=== PATIENT | male | born 1925 | race Caucasian/White ===

== ENCOUNTER 2016-10-09 09:39 | Inpatient (IN) | payer MEDICARE, BC ==
[~2016-10-09] VITALS: Ht 167.6 cm; Wt 81.4 kg
[2016-10-09] VITALS (11 sets, daily range): BP systolic 107–139; BP diastolic 53–79
[2016-10-09] MEDS ORDERED: NS IV 500 ML 500 ML IV ONE (09:59)
[2016-10-09] MEDS ORDERED: DILTIAZEM 25 MG/5 ML INJ (CARDIZEM) VIAL IVP ONE (10:00)
[2016-10-09] MEDS ORDERED: ASPIRIN 81 MG CHEW (CHILDREN'S ASA) PO ONE (10:00)
--- NOTE | 2016-10-09 10:07 | ED Cardiac General ---
History of Present Illness General Chief Complaint: Cardiac/General Problems Stated Complaint: IRR HEART RATE ELEV BP SOA Source: patient Exam Limitations: no limitations History of Present Illness Time seen by provider: 09:50 Initial Comments Here with report of irregular heart rate and elevated blood pressure that is associated with shortness of air. States he noted about 1 a.m. that his heart was beating fast. When walking in from the car, he reports that he was very short of breath and this persisted for a while. Noted to be tachycardic. He is traveling between [place] in [place]. He lives in [place]. He had been on a hunting trip. Denies chest pain, nausea, vomiting or weakness. Denies fever or chills. Has chronic runny nose. History of left eye enucleation. Timing/Duration: 12 hours Severity: moderate Location: central Activities at Onset: none Prior CP/Workup: other (history of chronic A. fib.) Modifying Factors: worse with exercise NTG SL ART PREPARATOR: No ASA po ART PREPARATOR: No Associated Systoms: No Chest Pain, No Fever/Chills, No Nausea/Vomiting, Shortness of AirNo Weakness Allergies and Home Medications Allergies Coded Allergies: sulfamethoxazole (Verified Allergy, Unknown, 10/09/16) trimethoprim (Verified Allergy, Unknown, 10/09/16) Review of Systems Constitutional: see HPINo chills, No fever EENTM: No Symptoms Reported Respiratory: See HPI SOA With Exertion SOA at Rest Cardiovascular: See HPI Irregular Heart Rate Palpitations Gastrointestinal: No Symptoms ReportedDenies Nausea, Denies Vomiting Genitourinary: No Symptoms Reported Musculoskeletal: no symptoms reportedNo back pain, No joint pain Skin: no symptoms reported Psychiatric/Neurological: No Symptoms Reported Endocrine: No Symptoms Reported All Other Systems Reviewed Negative Unless Noted: Yes Past Bigtjhd-Rostqh-Aemhqf Hx Patient Social History Alcohol Use: Denies Use Recreational Drug Use: No Smoking Status: Former Smoker Surgeries HX Surgeries: Yes Surgeries: Appendectomy, Eye Surgery Respiratory Hx Respiratory Disorders: No Cardiovascular Hx Cardiac Disorders: Yes Cardiac Disorders: Atrial Fibrillation, Hypertension Neurological Hx Neurological Disorders: No Genitourinary Hx Genitourinary Disorders: No Gastrointestinal Hx Gastrointestinal Disorders: No Musculoskeletal Hx Musculoskeletal Disorders: No Endocrine Hx Endocrine Disorders: No HEENT HX ENT Disorders: Yes Loss of Vision: Left Cancer Hx Cancer: No Reviewed Nursing Assessment Reviewed/Agree w Nursing PMH: Yes Family Medical History Significant Family History: No Pertinent Family Hx Physical Exam Vital Signs Vital Sign - Last 12Hours 10/09/16 10/09/16 09:40 09:45 Temp 99.0 Pulse 119 Resp 21 B/P 173/100 Pulse Ox 94 O2 Delivery Room Air O2 Flow Rate 2 Capillary Refill : General Appearance: No Apparent Distress WD/WN HEENT: Pharynx Normal Other (left eye enucleation. Right pupil reactive.) Neck: Full Range of Motion Non Tender Supple Respiratory: Lungs Clear Normal Breath Sounds Cardiovascular: Systolic Murmur Irregularly Irregular Gastrointestinal: Non Tender Soft Extremity: Normal Inspection Normal Range of Motion Non Tender No Calf Tenderness Neurologic/Psychiatric: Alert Oriented x3 Skin: Normal Color Warm/Dry Progress/Results/Core Measures Results/Orders Lab Results Laboratory Tests Test 10/09/16 09:55 10/09/16 11:54 Range/Units Activated Partial Thromboplast Time 48 H 24-35 SEC Alanine Aminotransferase (ALT/SGPT) 19 0-55 U/L Albumin 4.0 3.2-4.5 G/DL Alkaline Phosphatase 57 40-136 U/L Anion Gap 11 5-14 MMOL/L Aspartate Amino Transf (AST/SGOT) 27 5-34 U/L BUN/Creatinine Ratio 17 Basophils # (Auto) 0.0 0.0-0.1 10^3/uL Basophils (%) (Auto) 0 0-10 % Blood Urea Nitrogen 19 H 7-18 MG/DL Calcium Level 8.9 8.5-10.1 MG/DL Carbon Dioxide Level 18 L 21-32 MMOL/L Chloride Level 108 H 98-107 MMOL/L Creatinine 1.09 0.60-1.30 MG/DL Eosinophils # (Auto) 0.0 0.0-0.3 10^3/uL Eosinophils (%) (Auto) 1 0-10 % Estimat Glomerular Filtration Rate > 60 Glucose Level 195 H 70-105 MG/DL Hematocrit 37 L 40-54 % Hemoglobin 12.7 L 13.3-17.7 G/DL INR Comment 2.1 H 0.8-1.4 Lymphocytes # (Auto) 1.3 1.0-4.0 X 10^3 Lymphocytes (%) (Auto) 22 12-44 % Magnesium Level 1.8 1.8-2.4 MG/DL Mean Corpuscular Hemoglobin 32 25-34 PG Mean Corpuscular Hemoglobin Concent 35 32-36 G/DL Mean Corpuscular Volume 92 80-99 FL Mean Platelet Volume 10.9 H 7.4-10.4 FL Monocytes # (Auto) 0.6 0.0-1.0 X 10^3 Monocytes (%) (Auto) 11 0-12 % Myoglobin 67.1 10.0-92.0 NG/ML Neutrophils # (Auto) 3.7 1.8-7.8 X 10^3 Neutrophils (%) (Auto) 66 42-75 % Platelet Count 110 L 130-400 10^3/uL Potassium Level 3.9 3.6-5.0 MMOL/L Prothrombin Time 23.3 H 12.2-14.7 SEC Red Blood Count 3.94 L 4.35-5.85 10^6/uL Red Cell Distribution Width 14.4 10.0-14.5 % Sodium Level 137 135-145 MMOL/L Total Bilirubin 1.4 H 0.1-1.0 MG/DL Total Protein 6.9 6.4-8.2 G/DL Troponin I < 0.30 <0.30 NG/ML White Blood Count 6.3 4.3-11.0 10^3/uL B-Type Natriuretic Peptide 415.8 H <100.0 PG/ML My Orders Orders-EDILIA HA MD Cbc With Automated Diff (10/09/16 09:59) Magnesium (10/09/16 09:59) Chest 1 View, Ap/Pa Only (10/09/16 09:59) Ekg Tracing (10/09/16 09:59) Cardiac Profile 1 (10/09/16 09:59) Comprehensive Metabolic Panel (10/09/16 09:59) Myoglobin Serum (10/09/16 09:59) Protime With Inr (10/09/16 09:59) Partial Thromboplastin Time (10/09/16 09:59) O2 (10/09/16 09:59) Monitor-Rhythm Ecg Trace Only (10/09/16 09:59) Lipid Panel (10/10/16 06:00) Aspirin Chewable Tablet (Baby Aspirin Ch (10/09/16 10:00) Saline Lock/Iv-Start (10/09/16 09:59) Saline Lock/Iv-Start (10/09/16 09:59) Ns Iv 500 Ml (Sodium Chloride 0.9%) (10/09/16 09:59) Diltiazem Injection (Cardizem Injection) (10/09/16 10:00) Sodium Chloride (Ad... W/Diltiazem Drip (10/09/16 10:00) BNP (10/09/16 11:08) Furosemide Injection (Lasix Injection) (10/09/16 11:13) Medications Given in ED Current Medications Medications Dose Ordered Sig/Josefina Route Start Time Stop Time Status Last Admin Dose Admin Aspirin 324 mg 324 mg ONCE ONCE PO 10/09/16 10:00 10/09/16 10:01 DC 10/09/16 10:15 324 MG Diltiazem HCl 20 mg ONCE ONCE IVP 10/09/16 10:00 10/09/16 10:02 DC 10/09/16 10:14 20 MG Sodium Chloride 500 ml @ 0 mls/hr Q0M ONCE IV 10/09/16 09:59 10/09/16 10:01 DC 10/09/16 10:15 0 MLS/HR Vital Signs/I&O Vital Sign - Last 12Hours 10/09/16 10/09/16 10/09/16 09:40 09:45 10:16 Temp 99.0 Pulse 119 97 Resp 21 26 B/P 173/100 167/89 Pulse Ox 94 95 95 O2 Delivery Room Air Nasal Cannula O2 Flow Rate 2 2.00 Progress Note : Progress Note Seen and evaluated. IV, labs, EKG and chest x-ray ordered. Normal saline 500 mL bolus. Patient is having atrial fibrillation with rapid ventricular rate of 120s to 150s. Cardizem 20 mg IV and 10 mg an hour drip initiated. We will check coags as patient is on Coumadin to ensure that is therapeutic. Monitor patient. Cardizem drip decreased at 5 mg an hour with excellent management of heart rate. Blood pressure 120s over 60s. Chest x-ray shows fairly significant pulmonary congestion consistent with heart failure. This is likely related to uncontrolled heart rate and complicated by aortic stenosis. 1110: I did discuss the case with Dr. CARTER and he accepts patient for admission, inpatient status. Request Lasix 20 mg IV. This was ordered. Requested a cardiology consult and this was done. I did discuss the case with Dr. Medina. He will see the patient in consult. ICU admission. All findings and concerns discussed with patient and family who agree with plan. ECG Initial ECG Impression Date: Oct 09, 2016 Initial ECG Impression Time: 09:45 Initial ECG Rate: 125 Initial ECG Rhythm: A Fib/Flutter Comment Atrial fibrillation with rapid ventricular response. Multifocal PVCs noted. Right axis deviation. No evidence of ST elevation GA. No previous available for comparison. Interpreted by me. Diagnostic Imaging Diagonstic Imaging: Xray Plain Films/CT/US/NM/MRI: chest Comments [facility] [place], [place] NAME: Carlee [facility] REC#: [id number] PT STATUS: REG ER : [id number] PHYSICIAN: EDILIA HA MD ADMIT DATE: 10/09/16/ER Draft Date of Exam:10/09/16 CHEST 1 VIEW, AP/PA ONLY INDICATION: Hypertension, dyspnea, and cardiac dysrhythmia. TECHNIQUE: Portable upright view of the chest is obtained. COMPARISON: There is no previous study for comparison. FINDINGS: There is mild generalized cardiomegaly and pulmonary venous congestion. No pneumothorax identified. There is no significant pleural fluid. Prominence of interstitial markings may reflect mild interstitial edema. IMPRESSION: Cardiomegaly with mild pulmonary venous congestion. Interstitial markings may reflect interstitial edema secondary to congestive heart failure. Dictated on workstation # [id number] Dict: 10/09/16 1051 Trans: 10/09/[address] [place] [address] [id number] Interpreted by: DENEEN TREVINO MD Electronically signed by: Departure Communication Time/Spoke to Admitting Phy: 11:10 Time/Spoke to Consulting Physi: 11:27 Impression Impression: Primary Impression: Atrial fibrillation with rapid ventricular response Additional Impression: Acute heart failure Qualified Code: I50.9 - Heart failure, unspecified Disposition: ADMITTED INPATIENT Condition: Stable Decision to Admit Reason: Admit from ER (General) Decision to Admit/Date: Oct 09, 2016 Time/Decision to Admit Time: 11:10 EDILIA HA MD Oct 09, 2016 10:07
[2016-10-09 10:09] LABS: BASOPHILS % (AUTO) 0 % (0-10); EOSINOPHILS % (AUTO) 1 % (0-10); LYMPHOCYTES # (AUTO) 1.3 X 10^3 (1.0-4.0); LYMPHOCYTES % (AUTO) 22 % (12-44); MEAN CORPUSCULAR HGB CONC 35 G/DL (32-36); MEAN CORPUSCULAR VOLUME 92 FL (80-99); MEAN PLATELET VOLUME 10.9 FL (7.4-10.4); MONOCYTES # (AUTO) 0.6 X 10^3 (0.0-1.0); MONOCYTES % (AUTO) 11 % (0-12); NEUTROPHILS # (AUTO) 3.7 X 10^3 (1.8-7.8); NEUTROPHILS % (AUTO) 66 % (42-75); RED CELL DISTRIBUTION WIDTH 14.4 % (10.0-14.5)
[2016-10-09 10:11] LABS: MEAN CORPUSCULAR HEMOGLOBIN 32 PG (25-34); RED BLOOD COUNT 3.94 10^6/uL (4.35-5.85)
[2016-10-09 10:12] LABS: PLATELET COUNT 110 10^3/uL (130-400)
[2016-10-09 10:13] LABS: WHITE BLOOD COUNT 6.3 10^3/uL (4.3-11.0)
[2016-10-09] MEDS: DILTIAZEM DRIP 100 MG in SODIUM CHLORIDE (ADD-VANTAGE) 100 ML IV SCH ×2 (10:16→20:02)
[2016-10-09 10:25] LABS: INR 2.1 (0.8-1.4); PROTHROMBIN TIME PATIENT 23.3 SEC (12.2-14.7)
[2016-10-09 10:26] LABS: ALANINE AMINOTRANSFERASE 19 U/L (0-55); ANION GAP 11 MMOL/L (5-14); ASPARTATE AMINO TRANSFERASE 27 U/L (5-34); BILIRUBIN,TOTAL 1.4 MG/DL (0.1-1.0); BLOOD UREA NITROGEN 19 MG/DL (7-18); BUN/CREATININE RATIO 17; CALCIUM 8.9 MG/DL (8.5-10.1); CARBON DIOXIDE 18 MMOL/L (21-32); CHLORIDE 108 MMOL/L (98-107); CREATININE SERUM 1.09 MG/DL (0.60-1.30); GFR ESTIMATED > 60; GLUCOSE 195 MG/DL (70-105); MAGNESIUM 1.8 MG/DL (1.8-2.4); POTASSIUM 3.9 MMOL/L (3.6-5.0); SODIUM 137 MMOL/L (135-145); TOTAL PROTEIN 6.9 G/DL (6.4-8.2)
[2016-10-09 10:33] LABS: MYOGLOBIN SERUM 67.1 NG/ML (10.0-92.0)
--- NOTE | 2016-10-09 11:01 | Diagnostic Imaging Report ---
INDICATION: Hypertension, dyspnea, and cardiac dysrhythmia. TECHNIQUE: Portable upright view of the chest is obtained. COMPARISON: There is no previous study for comparison. FINDINGS: There is mild generalized cardiomegaly and pulmonary venous congestion. No pneumothorax identified. There is no significant pleural fluid. Prominence of interstitial markings may reflect mild interstitial edema. IMPRESSION: Cardiomegaly with mild pulmonary venous congestion. Interstitial markings may reflect interstitial edema secondary to congestive heart failure. Dictated by: Dictated on workstation # [id number]
[2016-10-09] MEDS ORDERED: FUROSEMIDE 40 MG/4 ML INJ (LASIX) IV STA (11:13)
--- NOTE | 2016-10-09 13:11 | Consultation-Cardiology ---
HPI-Cardiology Cardiology Consultation: Date of Consultation 10/09/16 Date of Admission Attending Physician Tio Angel MD Admitting Physician Sangeetha,Local Physician Consulting Physician Devin MEDINA MD HPI: Chief Complaint: Palpitations This is a pleasant 89-year-old gentleman who has history of atrial fibrillation , hypertension, hyperlipidemia. He was traveling from [place] to [place] when he experienced significant palpitations and decided to come to the nearest ER. He was found to be in atrial fibrillation with rapid ventricular rate. He was given a bolus of Cardizem which improved his heart rate response. He is also on chronic oral anticoagulation therapy with Coumadin. According to the patient and his INR is always above 2. He denies any chest pain, shortness of breath, syncope or near syncope. Review of Systems-Cardiology Review of Systems Constitutional: No As described under HPI, No no symptoms reported, No chills, No fever, No lightheadedness, No malaise, No tiredness, No weight loss, No weight gain, No other Eyes: No As described under HPI, No no symptoms reported, No blindness, No blurred vision, No contact lenses, No drainage, No decreased acuity, No foreign body sensation, No glasses, No inflammation, No pain, No photophobia, No previous injury, No shadows, No tunnel vision, No other, No vision change Ears/Nose/Throat: No As described under HPI, No no symptoms reported, No chronic hearing loss, No epistaxis, No ear discharge, No ear pain, No loose teeth, No mouth pain, No mouth swelling, No nasal drainage, No nose pain, No recent hearing loss, No throat pain, No throat swelling, No ulcerations, No other Respiratory: No no symptoms reported, No As described under HPI, No cough, No orthopnea, No shortness of breath, No SOB with excertion, No SOB at rest, No stridor, No wheezing, No other Cardiovascular: No no symptoms reported, No As described under HPI, No chest pain, No edema, irregular heart rateNo lightheadedness, palpitationsNo syncope , No other Gastrointestinal: No no symptoms reported, No As described under HPI, No abdomen distended, No abdominal pain, No blood streaked bowels, No constipation , No diarrhea, No difficulty swallowing, No nausea, No poor appetite, No poor fluid intake, No rectal bleeding, No vomiting, No other, No nausea/vomiting/ diarrhea, No stool coloration changes Genitourinary: No no symptoms reported, No As described under HPI, No burning, No dysuria, No discharge, No frequency, No flank pain, No hematuria, No incontinence, No pain, No urgency, No other, No urine frequency changes, No urine coloration changes Musculoskeletal: No no symptoms reported, No As describe under HPI, No back pain, No gout, No joint pain, No joint swelling, No muscle pain, No muscle stiffness, No neck pain, No other Skin: No no symptoms reported, No As described under HPI, No change in color, No change in hair/nails, No dryness, No lesions, No lumps, No rash, No other, No skin related problems, No ulcerations, No rash on exposed areas, No ulcerations on exposed areas Psychiatric/Neurological: No As described under HPI, No anxiety, No depression , No emotional problems, No focal weakness, No headache, No no symptoms reported , No numbness, No other, No pre-existing deficit, No seizure, No syncope, No tingling, No tremors, No weakness All Other Systems Reviewed Negative Unless Noted: Yes AQL-Cmsdsa-Npqxvd Hx Patient Social History Alcohol Use: Denies Use Recreational Drug Use: No Smoking Status: Former Smoker 2nd Hand Smoke Exposure: No Recent Foreign Travel: No Recent Infectious Disease Expo: No Hospitalization with Isolation: Denies Past Medical History PMH As described under Assessment. Allergies and Home Medications Allergies Coded Allergies: sulfamethoxazole (Verified Allergy, Unknown, 10/09/16) trimethoprim (Verified Allergy, Unknown, 10/09/16) Physical Exam-Cardiology Physical Exam Vital Signs/I&O Vital Sign - Last 12Hours 10/09/16 10/09/16 10/09/16 09:40 09:45 10:16 Temp 99.0 Pulse 119 97 Resp 21 26 B/P 173/100 167/89 Pulse Ox 94 95 95 O2 Delivery Room Air Nasal Cannula O2 Flow Rate 2 2.00 Capillary Refill : Less Than 3 Seconds Constitutional: No appears stated age, No AAO x 3, No apparent distress, No PERRL, No well-developed, No well-nourished, No other HEENT: No PERRL, No normal ENT inspection, No TMs normal, No pharynx normal, No scleral icterus (R), No scleral icterus (L), No pale conjunctivae (R), No pale conjunctivae (L), No photophobia, No TM abnormal (R), No TM abnormal (L), No pharyngeal erythema, No tonsillar exudate, No other, No discharge, No EOMI, No hearing is well preserved, No hard of hearing, No oral hygience is good, No ulceration, No xanthelasmas are seen Neck: No non-tender, No full range of motion, No supple, No normal inspection, No carotid bruit, No limited range of motion, No lymphadenopathy (R), No lymphadenopathy (L), No tender lateral, No tender midline, No thyromegaly, No other, No carotid pulses are 2 + bilaterally, No with good upstrokes Respiratory: No accessory muscle use, No respiratory distress, No chest tender , No chest expansion is symmetric, No chest is bilaterally symmetric, No lungs clear to percussion, No lungs clear to auscultation, No crackles, No rhonchi, No rales, No stridor, No wheezing, No pleural rub, No other Cardiovascular: irregularly irregular systolic murmur Gastrointestinal: No tender, No soft, No round, No distended, No pulsatile mass , No organomegaly, No guarding, No rebound, No tenderness, No hernia, No mass, No audible bowel sounds, No abnormal bowel sounds, No abdominal bruits, No spleenomegaly, No other Rectal: deferred Extremities: No normal range of motion, No non-tender, No normal inspection, No pedal edema, No calf tenderness, No normal capillary refill, No pelvis stable , No calf tenderness, No inflammation, No pedal edema, No slow capillary refill , No swelling, No other, No abrasion, No clubbing, No cyanosis, No ecchymosis, No laceration, No no lower extremity edema bilateral, No significant edema, No tenderness, No wound Neurologic/Psychiatric: No driver II-XII nml as tested, No no motor/sensory deficits, No alert, No normal mood/affect, No oriented x 3, No abnormal cerebellar tests, No abnormal driver II-XII, No abnormal gait, No aphasia, No EOM palsy, No facial droop, No motor weakness, No sensory deficit, No depressed affect, No disoriented x 3, No other, No grossly intact, No power is 5/5 both on sides Skin: No normal color, No warm/dry, No cyanosis, No cool, No diaphoresis, No damp, No ecchymosis, No jaundice, No mottled, No pallor, No rash, No tattoos/ piercings, No ulcerations, No rash on exposed areas, No ulcerations on exposed areas, No other Data Review Labs Laboratory Tests 10/09/16 09:55: Activated Partial Thromboplast Time 48H, Alanine Aminotransferase (ALT/SGPT) 19 , Albumin 4.0, Alkaline Phosphatase 57, Anion Gap 11, Aspartate Amino Transf ( AST/SGOT) 27, BUN/Creatinine Ratio 17, Basophils # (Auto) 0.0, Basophils (%) ( Auto) 0, Blood Urea Nitrogen 19H, Calcium Level 8.9, Carbon Dioxide Level 18L, Chloride Level 108H, Creatinine 1.09, Eosinophils # (Auto) 0.0, Eosinophils (%) (Auto) 1, Estimat Glomerular Filtration Rate > 60, Glucose Level 195H, Hematocrit 37L, Hemoglobin 12.7L, INR Comment 2.1H, Lymphocytes # (Auto) 1.3, Lymphocytes (%) (Auto) 22, Magnesium Level 1.8, Mean Corpuscular Hemoglobin 32, Mean Corpuscular Hemoglobin Concent 35, Mean Corpuscular Volume 92, Mean Platelet Volume 10.9H, Monocytes # (Auto) 0.6, Monocytes (%) (Auto) 11, Myoglobin 67.1, Neutrophils # (Auto) 3.7, Neutrophils (%) (Auto) 66, Platelet Count 110L, Potassium Level 3.9, Prothrombin Time 23.3H, Red Blood Count 3.94L, Red Cell Distribution Width 14.4, Sodium Level 137, Total Bilirubin 1.4H, Total Protein 6.9, Troponin I < 0.30, White Blood Count 6.3 10/09/16 11:54: B-Type Natriuretic Peptide 415.8H ECG Impression ECG Initial ECG Impression: Atrial Fibrillation w/RVR A/P-Cardiology Assessment/Admission Diagnosis 1. Atrial fibrillation with rapid ventricular rate, 2. Heart murmur, 3. Hypertension Plan - Much better heart rate response after bolus of Cardizem and Cardizem infusion. Heart rate during my consultation and range from 60-80 BPM. I will find out the dose of outpatient metoprolol; will start him on metoprolol may be at a higher dose and gradually transition him off Cardizem infusion. Continue Coumadin. - Continue his hypertension medications. - Echocardiogram to evaluate for heart murmur. Thank you for your consultation. Please call me if you have any questions. Vanessa Medina MD, FACP, FACC, FSCAI, FHRS, CCDS Interventional Cardiology Cardiac Electrophysiology Vascular Medicine and Endovascular Interventions Clinical Quality Measures AMI/AHF: ASA po Prior to arrival: No DVT/VTE Risk/Contraindication: Other: Adequate oral anticoagulation Devin MEDINA MD Oct 09, 2016 13:11
[2016-10-09] MEDS ORDERED: METO-274 PO (13:25)
[2016-10-09] MEDS ORDERED: MULT-1029 PO (13:47)
[2016-10-09] MEDS ORDERED: AMLO5TAB2 PO (13:57)
[2016-10-09] MEDS ORDERED: LISI-552 PO (13:57)
[2016-10-09] MEDS ORDERED: TRIA1TAB3 PO (13:57)
[2016-10-09] MEDS ORDERED: WARF2.5T82 PO ×2 (13:57)
[2016-10-09] MEDS ORDERED: PRAV40TA2 PO (13:57)
--- NOTE | 2016-10-09 13:57 | History & Physical-Hospitalist ---
HPI History of Present Illness: HPI/Chief Complaint Wake up the patient is a charming and alert 89-year-old white male who presented to the emergency room this morning with complaints of cough and shortness of breath. On evaluation in the emergency room he was found to have atrial fibrillation with a rapid ventricular response in the 130-160 range. In addition he was noted to have the murmur of aortic stenosis. He reports that he has had atrial fibrillation for at least 2 years. He has not previously had palpitations however. 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 He was overnight eating here in [place] on his return trip from [place] where he had been on [place]. The rate was controlled in the emergency room by virtue of IV Cardizem. He had initially been given about 500 mL of IV fluids. When the chest x-ray returned it suggested some pulmonary edema. The patient reports that he has previously had an echocardiogram several years ago. He is not clear as to the ejection fraction or the aortic valve surface area. Source: patient Exam Limitations: no limitations Date Seen 10/09/16 Attending Physician Tio Carter MD PCP No,Local Physician Referring Physician Date of Admission Oct 09, 2016 at 12:19 Home Medications & Allergies Home Medications Reviewed patient Home Medication Reconciliation Form Allergies Coded Allergies: sulfamethoxazole (Verified Allergy, Unknown, 10/09/16) trimethoprim (Verified Allergy, Unknown, 10/09/16) Past Cqqewlo-Apxepy-Vpmxat Hx Patient Social History Alcohol Use: Denies Use Recreational Drug Use: No Smoking Status: Former Smoker 2nd Hand Smoke Exposure: No Recent Foreign Travel: No Contact w/other who traveled: No Recent Hopitalizations: No Recent Infectious Disease Expo: No Seasonal Allergies Seasonal Allergies: No Surgeries HX Surgeries: Yes Surgeries: Appendectomy, Eye Surgery Respiratory Hx Respiratory Disorders: No Cardiovascular Hx Cardiovascular Disorders: Yes Cardiac Disorders: Atrial Fibrillation, Hypertension Neurological Hx Neurological Disorders: No Genitourinary Hx Genitourinary Disorders: No Gastrointestinal Hx Gastrointestinal Disorders: No Musculoskeletal Hx Musculoskeletal Disorders: No Endocrine Hx Endocrine Disorders: No HEENT HX ENT Disorders: Yes Loss of Vision: Left Cancer Hx Cancer: No Psychosocial Hx Psychiatric Problems: No Reviewed Nursing Assessment Reviewed/Agree w Nursing PMH: Yes Family Medical History Significant Family History: No Pertinent Family Hx Review of Systems Constitutional: see HPI EENTM: no symptoms reported Respiratory: cough short of breath Cardiovascular: palpitations Gastrointestinal: no symptoms reported Genitourinary: no symptoms reported Musculoskeletal: no symptoms reported Skin: no symptoms reported Psychiatric/Neurological: No Symptoms Reported Physical Exam Physical Exam Vital Signs Vital Sign - Last 12Hours 10/09/16 10/09/16 09:40 09:45 Temp 99.0 Pulse 119 Resp 21 B/P 173/100 Pulse Ox 94 O2 Delivery Room Air O2 Flow Rate 2 Capillary Refill : Less Than 3 Seconds General Appearance: No Apparent Distress WD/WN Eyes: Bilateral Eye Normal Inspection HEENT: Normal ENT Inspection Neck: Full Range of Motion Normal Inspection Non Tender Supple Carotid Bruit Respiratory: Chest Non Tender Lungs Clear Normal Breath Sounds No Accessory Muscle Use No Respiratory Distress Cardiovascular: Irregularly Irregular Other (grade 2-3 systolic murmur in the area of the aortic valve) Gastrointestinal: Normal Bowel Sounds No Organomegaly No Pulsatile Mass Non Tender Soft Extremity: Normal Capillary Refill Normal Inspection Normal Range of Motion Non Tender No Calf Tenderness No Pedal Edema Neurologic/Psychiatric: Alert Oriented x3 No Motor/Sensory Deficits Normal Mood/Affect Skin: Normal Color Warm/Dry Lymphatic: No Adenopathy Results Results/Procedures Lab Laboratory Tests 10/09/16 09:55 Assessment/Plan Admission Diagnosis 1.atrial fibrillation with rapid ventricular response 2.pulmonary edema secondary to heart rate in excess of predicted maximum heart rate. 3.murmur suggesting aortic stenosis Assessment and Plan Cardiology consult. 2.echocardiogram to evaluate ejection fraction and valve surface area Clinical Quality Measures AMI/AHF: ASA po Prior to arrival: No DVT/VTE Risk/Contraindication: Other: Adequate oral anticoagulation TIO CARTER MD Oct 09, 2016 13:57
[2016-10-10] VITALS (9 sets, daily range): BP systolic 98–131; BP diastolic 43–74
[2016-10-10 04:30] LABS: BASOPHILS % (AUTO) 0 % (0-10); EOSINOPHILS # (AUTO) 0.1 10^3/uL (0.0-0.3); EOSINOPHILS % (AUTO) 2 % (0-10); LYMPHOCYTES # (AUTO) 1.1 X 10^3 (1.0-4.0); LYMPHOCYTES % (AUTO) 21 % (12-44); MEAN CORPUSCULAR HEMOGLOBIN 32 PG (25-34); MEAN CORPUSCULAR HGB CONC 35 G/DL (32-36); MEAN CORPUSCULAR VOLUME 92 FL (80-99); MEAN PLATELET VOLUME 10.5 FL (7.4-10.4); MONOCYTES # (AUTO) 0.8 X 10^3 (0.0-1.0); MONOCYTES % (AUTO) 15 % (0-12); NEUTROPHILS # (AUTO) 3.3 X 10^3 (1.8-7.8); NEUTROPHILS % (AUTO) 61 % (42-75); PLATELET COUNT 165 10^3/uL (130-400); RED BLOOD COUNT 3.73 10^6/uL (4.35-5.85); RED CELL DISTRIBUTION WIDTH 14.5 % (10.0-14.5); WHITE BLOOD COUNT 5.4 10^3/uL (4.3-11.0)
[2016-10-10 04:40] LABS: PROTHROMBIN TIME PATIENT 22.1 SEC (12.2-14.7)
[2016-10-10 04:48] LABS: ANION GAP 12 MMOL/L (5-14); BLOOD UREA NITROGEN 17 MG/DL (7-18); BUN/CREATININE RATIO 16; CALCIUM 8.6 MG/DL (8.5-10.1); CARBON DIOXIDE 20 MMOL/L (21-32); CHLORIDE 106 MMOL/L (98-107); CREATININE SERUM 1.08 MG/DL (0.60-1.30); GFR ESTIMATED > 60; GLUCOSE 116 MG/DL (70-105); MAGNESIUM 1.7 MG/DL (1.8-2.4); POTASSIUM 3.9 MMOL/L (3.6-5.0); SODIUM 138 MMOL/L (135-145)
[2016-10-10 04:50] LABS: CHOLESTEROL 146 MG/DL (< 200); DIRECT LDL 98 MG/DL (1-129); TRIGLYCERIDES 84 MG/DL (<150); VLDL CHOLESTEROL 17 MG/DL (5-40)
[2016-10-10] MEDS ORDERED: MAGNESIUM 1 GM/100 ML IVPB 100 ML IV SCH (06:00)
[2016-10-10] MEDS ORDERED: POTASSIUM CL 10MEQ/50ML IVPB 50 ML IV SCH (06:00)
[2016-10-10] MEDS ORDERED: KCL 20 MEQ TAB (K-DUR) PO SCH (06:00)
[2016-10-10] MEDS: MAGNESIUM 1 GM/100 ML IVPB 100 ML IV SCH ×2 (06:28→10:09)
--- NOTE | 2016-10-10 07:39 | Pulmonary Consultation ---
History of Present Illness History of Present Illness Date of Consultation 10/10/16 07:33 Date of Admission History of Present Illness 89yo presented to ED secondary to worsening SOB and nonproductive cough. He was found to have Afib RVR in the ED. He does have hx of Afib for the last 2 yrs. 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 CXR shows pulmonary edema. I am consulted for ICU management. Allergies and Home Medications Allergies Coded Allergies: sulfamethoxazole (Verified Allergy, Unknown, 10/09/16) trimethoprim (Verified Allergy, Unknown, 10/09/16) Home Medications Amlodipine Besylate 5 Mg Tablet 5 MG PO DAILY (Reported) Lisinopril 20 Mg Tablet 20 MG PO BID (Reported) Metoprolol Succinate 100 Mg Tab.er.24h 50 MG PO HS (Reported) TAKES 1/2 (100MG) TABLET Multivit-Min/FA/Lycopene/Lut 1 Each Tablet 1 TAB PO DAILY (Reported) Pravastatin Sodium 40 Mg Tablet 40 MG PO HS (Reported) Triamterene/Hydrochlorothiazid 1 Each Tablet 1 TAB PO DAILY (Reported) Warfarin Sodium 2.5 Mg Tablet 2.5 MG PO SuTuWeFrSa (Reported) Warfarin Sodium 2.5 Mg Tablet 3.75 MG PO MoTh (Reported) TAKES 1 & 1/2 (2.5MG) TABLET Past Sixmnyq-[id number]-Mzqetp Hx Patient Social History Alcohol Use: Occasionally Uses Recreational Drug Use: No Smoking Status: Former Smoker Type Used: Cigarettes 2nd Hand Smoke Exposure: No Recent Foreign Travel: No Contact w/Someone Who Travel: No Recent Infectious Disease Expo: No Recent Hopitalizations: No Physical Abuse Screen: No Sexual Abuse: No Immunizations Up To Date Date of Pneumonia Vaccine: Jun 08, 2014 Date of Influenza Vaccine: Apr 12, 2016 Seasonal Allergies Seasonal Allergies: No Surgeries HX Surgeries: Yes Surgeries: Appendectomy, Eye Surgery Respiratory Hx Respiratory Disorders: No Cardiovascular Hx Cardiac Disorders: Yes Cardiac Disorders: Atrial Fibrillation, Hypertension Neurological Hx Neurological Disorders: No Genitourinary Hx Genitourinary Disorders: No Genitourinary Disorders: Benign Prostatic Hyperpl Gastrointestinal Hx Gastrointestinal Disorders: No Musculoskeletal Hx Musculoskeletal Disorders: No Endocrine Hx Endocrine Disorders: No HEENT HX ENT Disorders: Yes Loss of Vision: Left Cancer Hx Cancer: No Psychosocial Hx Psychiatric Problems: No Blood Transfusions Adverse Reaction to a Blood Tr: No Reviewed Nursing Assessment Reviewed/Agree w Nursing PMH: Yes Family Medical History Significant Family History: No Pertinent Family Hx Exam Exam Vital Signs Date Time Temp Pulse Resp B/P Pulse Ox O2 Delivery O2 Flow Rate FiO2 10/10/16 06:00 65 91 Nasal Cannula 3.00 10/10/16 05:00 81 93 Nasal Cannula 3.00 10/10/16 04:00 93 3.00 10/10/16 04:00 98.0 10/10/16 04:00 67 124/72 95 Nasal Cannula 3.00 10/10/16 03:00 55 98/43 91 Nasal Cannula 3.00 10/10/16 02:00 59 108/63 91 Nasal Cannula 3.00 10/10/16 01:00 48 10/10/16 01:00 61 123/54 93 Nasal Cannula 3.00 10/10/16 00:00 98.1 10/10/16 00:00 92 3.00 10/10/16 00:00 59 117/64 92 Nasal Cannula 3.00 10/09/16 23:00 59 112/53 92 Nasal Cannula 3.00 10/09/16 22:00 66 132/74 95 Nasal Cannula 3.00 10/09/16 21:00 57 13 128/79 91 Nasal Cannula 3.00 10/09/16 20:02 60 117/72 90 3.00 10/09/16 20:00 98.0 60 22 117/72 90 Nasal Cannula 3.00 10/09/16 20:00 92 3.00 10/09/16 19:00 56 28 110/60 89 Nasal Cannula 3.00 10/09/16 19:00 56 10/09/16 18:00 57 27 107/65 91 Room Air 10/09/16 17:00 62 15 126/76 90 Room Air 10/09/16 16:00 61 22 134/75 91 Room Air 10/09/16 15:00 61 19 132/61 90 Room Air 10/09/16 14:00 57 16 116/70 89 Room Air 10/09/16 13:27 98.1 81 20 139/69 93 Room Air 10/09/16 13:20 2.00 10/09/16 13:00 79 10/09/16 12:45 99.0 67 20 95 2.00 10/09/16 10:16 97 26 167/89 95 2.00 10/09/16 09:45 95 Nasal Cannula 2 10/09/16 09:40 99.0 119 21 173/100 94 Room Air I & O 10/10/16 06:59 Intake Total 940 ml Output Total 2100 ml Balance -1160 ml General Appearance: No Apparent Distress WD/WN HEENT: Normal ENT Inspection Neck: Full Range of Motion Normal Inspection Non Tender Supple Carotid Bruit Respiratory: Chest Non Tender Lungs Clear Normal Breath Sounds No Accessory Muscle Use No Respiratory Distress Cardiovascular: Irregularly Irregular Other (grade 2-3 systolic murmur in the area of the aortic valve) Capillary Refill: Less Than 3 Seconds Extremity: Normal Capillary Refill Normal Inspection Normal Range of Motion Non Tender No Calf Tenderness No Pedal Edema Neurologic/Psychiatric: Alert Oriented x3 No Motor/Sensory Deficits Normal Mood/Affect Skin: Normal Color Warm/Dry Lymphatic: No Adenopathy Results Lab Laboratory Tests 10/09/16 09:55 10/10/16 03:52 Assessment/Plan Assessment/Plan Afib with RVR -Cardizem gtt Pulmoanry edema secondary to #1 -Monitor Cardiology following Clinical Quality Measures AMI/AHF: ASA po Prior to arrival: No DVT/VTE Risk/Contraindication: Risk Factor Score Per Nursin RFS Level Per Nursing on Admit: 2=Moderate Other: Adequate oral anticoagulation PARAS TRINH DO Oct 10, 2016 07:38
--- NOTE | 2016-10-10 08:22 | Diagnostic Imaging Report ---
Portable upright radiograph of the chest. INDICATION: A. fib. COMPARISON: 10/09/16. FINDINGS: There is improved pulmonary vascular congestion with minimal remaining cephalization. No hernandez edema. The cardiac size is markedly enlarged. No effusion or pneumothorax. The mediastinum and estevan appear unremarkable. The lungs appear hyperinflated. IMPRESSION: Hyperinflated lungs. Cardiomegaly. Near-complete resolution of vascular junction. Dictated by: Dictated on workstation # [id number]
[2016-10-10] MEDS ORDERED: warFARin 2.5 MG (COUMADIN) TAB PO SCH (10:00)
[2016-10-10] MEDS ORDERED: meTOproloL SUCCINATE 50 MG (TOPROL XL) TAB PO ONE (10:03)
[2016-10-10] MEDS ORDERED: CATHETER FLUSH 10 ML SYR IV PRN (10:45)
--- NOTE | 2016-10-10 12:02 | Discharge Inst-Simple/Standard ---
Discharge Inst-Standard Discharge Medications New, Converted or Re-Newed RX: Other Patient Instructions/Follow Up Plan of Care/Instructions/FU: Medications as listed on discharge sequence. On your trip back to [place] stop every 2-3 hours and walk around the car twice before resuming trip Activity as Tolerated: Yes Goal: Stability in previous state of health Discharge Diet: Coumadin Patient Diet Return to The Hospital For: Recurrent symptoms NELIDA CARTER MD Oct 10, 2016 12:02
--- NOTE | 2016-10-10 12:11 | Progress Note-Hospitalist ---
Standard Progress Note Progress Notes/Assess & Plan Date Seen 10/10/16 Diagnosis 1.atrial fibrillation with rapid ventricular response 2.pulmonary edema secondary to heart rate in excess of predicted maximum heart rate. 3.murmur suggesting aortic stenosis Assess & Plan/Chief Complaint The patient has been cleared for discharge by Dr. Medina. It is his intent to begin his trip home to [place] today and to have a one night layover so as to not provoke unnecessary fatigue on his way home. He reports no complaints at this time. There is no shortness of breath. He remains in atrial fibrillation although his rate is controlled. Physical exam: His is in the room with him thereabouts alert and charming. Lungs are clear to auscultation. CV is slow and slightly irregular. Abdomen is soft without tenderness to palpation. Extremities show no edema. Echocardiogram report has not been posted as yet. Impression: Atrial fibrillation with rapid ventricular response now controlled. Pulmonary edema now cleared. Murmur of aortic stenosis. Plan: Discharge and began trip to home in [place]. Labs Laboratory Tests 10/09/16 09:55 10/10/16 03:52 Final Diagnosis 1.atrial fibrillation with rapid ventricular response now controlled. 2.mild pulmonary edema secondary to number 1. 3.murmur of aortic stenosis NELIDA CARTER MD Oct 10, 2016 12:11
[2016-10-10] MEDS ORDERED: meTOproloL SUCCINATE 50 MG (TOPROL XL) TAB PO SCH (21:00)
[2016-10-10] MEDS ORDERED: meTOprolol SUCCINATE 100 MG (TOPROL XL) TAB PO SCH (21:00)
--- NOTE | 2016-10-10 22:03 | Cardiology Progress Note ---
Cardiology SOAP Progress Note Subjective: no symptoms Objective: I&O/Vital Signs Vital Sign - Last 12Hours 10/10/16 10/10/16 10/10/16 12:36 12:45 13:13 Pulse 65 65 Resp 13 B/P 130/74 130/74 Pulse Ox 91 O2 Flow Rate 3.00 Intake and Output 10/10/16 00:00 Intake Total 440 ml Output Total 1800 ml Balance -1360 ml Weight (Pounds): 179 Weight (Ounces): 9.0 Weight (Calculated Kilograms): [id number] Constitutional: No appears stated age, No AAO x 3, No apparent distress, No PERRL, No well-developed, No well-nourished, No other Respiratory: No accessory muscle use, No respiratory distress, No chest tender , No chest expansion is symmetric, No chest is bilaterally symmetric, No lungs clear to percussion, No lungs clear to auscultation, No crackles, No rhonchi, No rales, No stridor, No wheezing, No pleural rub, No other Cardiovascular: irregularly irregular systolic murmur Gastrointestional: No tender, No soft, No round, No distended, No pulsatile mass, No organomegaly, No guarding, No rebound, No tenderness, No hernia, No mass, No audible bowel sounds, No abnormal bowel sounds, No abdominal bruits, No spleenomegaly, No other Extremities: No normal range of motion, No non-tender, No normal inspection, No pedal edema, No calf tenderness, No normal capillary refill, No pelvis stable , No calf tenderness, No inflammation, No pedal edema, No slow capillary refill , No swelling, No other, No abrasion, No clubbing, No cyanosis, No ecchymosis, No laceration, No no lower extremity edema bilateral, No significant edema, No tenderness, No wound Neurologic/Psychiatric: No manager retail II-XII nml as tested, No no motor/sensory deficits, No alert, No normal mood/affect, No oriented x 3, No abnormal cerebellar tests, No abnormal manager retail II-XII, No abnormal gait, No aphasia, No EOM palsy, No facial droop, No motor weakness, No sensory deficit, No depressed affect, No disoriented x 3, No other, No grossly intact, No power is 5/5 both on sides Skin: No normal color, No warm/dry, No cyanosis, No cool, No diaphoresis, No damp, No ecchymosis, No jaundice, No mottled, No pallor, No rash, No tattoos/ piercings, No ulcerations, No rash on exposed areas, No ulcerations on exposed areas, No other Results/Procedures: Labs Laboratory Tests 10/10/16 03:52: Anion Gap 12, BUN/Creatinine Ratio 16, Basophils # (Auto) 0.0, Basophils (%) ( Auto) 0, Blood Urea Nitrogen 17, Calcium Level 8.6, Carbon Dioxide Level 20L, Chloride Level 106, Cholesterol Level 146, Creatinine 1.08, Eosinophils # (Auto ) 0.1, Eosinophils (%) (Auto) 2, Estimat Glomerular Filtration Rate > 60, Glucose Level 116H, HDL Cholesterol 33L, Hematocrit 34L, Hemoglobin 12.0L, INR Comment 2.0H, LDL Cholesterol Direct 98, Lymphocytes # (Auto) 1.1, Lymphocytes ( %) (Auto) 21, Magnesium Level 1.7L, Mean Corpuscular Hemoglobin 32, Mean Corpuscular Hemoglobin Concent 35, Mean Corpuscular Volume 92, Mean Platelet Volume 10.5H, Monocytes # (Auto) 0.8, Monocytes (%) (Auto) 15H, Neutrophils # ( Auto) 3.3, Neutrophils (%) (Auto) 61, Platelet Count 165, Potassium Level 3.9, Prothrombin Time 22.1H, Red Blood Count 3.73L, Red Cell Distribution Width 14.5 , Sodium Level 138, Triglycerides Level 84, VLDL Cholesterol 17, White Blood Count 5.4 A/P: Assessment/Dx: 1. Atrial fibrillation with rapid ventricular rate, 2. Heart murmur, 3. Hypertension Plan: - Much better heart rate response after bolus of Cardizem and Cardizem infusion. Heart rate during my consultation and range from 60-80 BPM. I will find out the dose of outpatient metoprolol; will start him on metoprolol may be at a higher dose and gradually transition him off Cardizem infusion. Continue Coumadin. - Continue his hypertension medications. - Echocardiogram to evaluate for heart murmur. preliminary report shows aortic stenosis. 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 Thank you for your consultation. Please call me if you have any questions. Vanessa Medina MD, FACP, FACC, FSCAI, FHRS, CCDS Interventional Cardiology Cardiac Electrophysiology Vascular Medicine and Endovascular Interventions Clinical Quality Measures AMI/AHF: ASA po Prior to arrival: Devin Mejia MD Oct 10, 2016 10:03 pm
--- NOTE | 2016-10-12 07:07 | ECHOCARDIOGRAPHY REPORT ---
PROCEDURE PHYSICIAN: MARIKA MEDINA DATE OF PROCEDURE: 10/09/2016 TWO DIMENSIONAL ECHOCARDIOGRAM REPORT PRIMARY PHYSICIAN: OTHER PHYSICIAN: REFERRING PHYSICIAN: ORDERING PHYSICIAN: Dr. Chip Medina ATTENDING PHYSICIAN: Dr. Tio Angel FAMILY PHYSICIAN: READING PHYSICIAN: INDICATION FOR THE PROCEDURE: Atrial fibrillation. MEASUREMENTS DERIVED VALUES LV DIAMETER (LAX) NORMALS NORMALS Diastolic (3.6-5.2) Eject. Fract. (60%+/-6%) Systolic (2.3-3.9) Diastolic Vol. % Shortening (0.22-0.42) Systolic Vol. Aortic Root IVS THICKNESS Diastolic (0.6-1.1) LVPW THICKNESS Diastolic (0.6-1.1) LA DIAMETER Systolic (2.1-3.7) FINDINGS: 1. Atrial fibrillation. 2. Left heart atrial enlargement is noted. Left atrium is 4.7 cm in diameter. 3. Aortic root diameter is normal. 4. LV systolic function is normal. LV EF is 55 to 60%. Mild LVH is present. Diastolic intraventricular septal diameter is 1.1 cm. 5. There is no wall motion abnormalities. 6. Dilated right-sided chambers are noted. 7. There is no pericardial effusion. 8. Diastolic evaluation could not be performed since the patient was in atrial fibrillation. 9. IVC is normal. VALVULAR STRUCTURE OF THE HEART: 1. Severely thickened aortic valve is noted. Maximum gradient of the aortic valve was 98 mmHg and mean gradient was 59 mmHg. Aortic valve area by VTI was 0.7 sq cm. This suggests severe aortic stenosis. 2. There is moderate tricuspid regurgitation with RVSP of 50 mmHg. 3. Thickened mitral valve is noted with mild mitral regurgitation. 4. Pulmonic valve is normal. CONCLUSION: 1. LV size and function is normal. 2. LV EF is 55 to 60%. 3. Left atrial enlargement and mild concentric LVH is noted. 4. Severe aortic stenosis is noted as above. 5. There is moderate tricuspid regurgitation with moderate pulmonary hypertension with RVSP of 55 mmHg. 6. Dilated right heart is noted. 7. 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 Job ID: [id number] Dictated Date: 10/11/2016 22:28:58 Hospitalist Program Director Date: 10/12/2016 06:56:04 / cee SYKES
== END 2016-10-10 13:15 | disposition home or self-care (01) | DRG 309 ==
LOC: ER 09:42 → ICU 12:19
PROVIDERS: ADMIT Internal Medicine; ATTEND Internal Medicine
DX: I48.0 Paroxysmal atrial fibrillation (principal); I11.0 Hypertensive heart disease with heart failure; I50.1 Left ventricular failure, unspecified; I35.0 Nonrheumatic aortic (valve) stenosis; E78.5 Hyperlipidemia, unspecified; Z87.891 Personal history of nicotine dependence; Z79.01 Long term (current) use of anticoagulants
CPT/HCPCS: 36415; 71010; 80048; 80053; 80061; 83735; 83874; 83880; 84484; 85025; 85610; 85730; 93005; 93041; 93306; 96365; 96366; 96375